=== PATIENT | male | born 1990 | race Caucasian/White ===

== ENCOUNTER 2024-04-05 10:46 | Outpatient (CLI) | payer OTHER, SELFPAY ==
[2024-04-05 13:57] LABS: Strep A DNA Probe* NOT DETECTED (Not Detectd)
== END 2024-04-05 10:47 | disposition home or self-care (01) ==
LOC: KYNREF 10:46
PROVIDERS: PCP Nurse Practitioner Family; Visit Provider Nurse Practitioner Family
DX: J02.9 Acute pharyngitis, unspecified (principal)
CPT/HCPCS: 87651

== ENCOUNTER 2024-07-11 11:00 | Outpatient (CLI) | payer OTHER, SELFPAY ==
[2024-07-11 14:20] LABS: Strep A DNA Probe* DETECTED (Not Detectd)
== END 2024-07-11 11:01 | disposition home or self-care (01) ==
LOC: KYNREF 11:01
PROVIDERS: PCP Nurse Practitioner Family; Visit Provider Nurse Practitioner Family
DX: J02.0 Streptococcal pharyngitis (principal)
CPT/HCPCS: 87651

== ENCOUNTER 2024-10-24 09:10 | Outpatient (CLI) | payer OTHER, SELFPAY | END 2024-10-24 09:11 | disposition home or self-care (01) | LOC: NFLDREF 10-26 02:12 | PROVIDERS: PCP Nurse Practitioner Family; Referring Provider Nurse Practitioner Family; Visit Provider Internal Medicine | DX: E78.5 Hyperlipidemia, unspecified (principal); Z80.42 Family history of malignant neoplasm of prostate; Z12.5 Encounter for screening for malignant neoplasm of prostate | CPT/HCPCS: 80053; 80061; G0103 ==